=== PATIENT | male | born 1995 | race Caucasian/White ===

== ENCOUNTER 2021-07-26 18:53 | Emergency (ER) | payer BC ==
[2021-07-26] MEDS ORDERED: HYDROmorphone 1 MG/ML Syringe IVPUSH ONE (20:26)
[2021-07-26] MEDS ORDERED: Sodium Chloride 0.9% 1,000 ML IV ONE (20:26)
[2021-07-26] MEDS ORDERED: Ondansetron 4 MG/2 ML SDV IVPUSH ONE (20:26)
[2021-07-26] MEDS ORDERED: Sodium Chloride 0.9% 2.5 ML Syringe FLUSH PRN (20:26)
[2021-07-26] MEDS ORDERED: LORazepam 1 MG Tab PO ONE (20:26)
[2021-07-26] MEDS ORDERED: Sodium Chloride 0.9% 10 ML Syringe FLUSH PRN (20:26)
[2021-07-26] MEDS ORDERED: Lidocaine 2% with EPINEPHrine 1:200,000 20 ML SDV SUBCUT STA (20:28)
[2021-07-26] MEDS ORDERED: Lidocaine 1% with EPINEPHrine 1:100,000 20 ML MDV ONE (20:52)
[2021-07-26] MEDS ORDERED: PHENYLEPHRINE SCH (21:00)
[2021-07-26] MEDS ORDERED: SODIUM CHLORIDE 0.9% SCH (21:00)
--- NOTE | 2021-07-26 21:29 | EDM.PDOC ---
ED HPI GENERAL MEDICAL PROBLEM - General Chief Complaint: Genitourinary Problem Stated Complaint: ERECTION SINCE 9AM Time Seen by Provider: 07/26/21 20:22 - History of Present Illness INITIAL COMMENTS - FREE TEXT/NARRATIVE: HISTORY AND PHYSICAL: History of present illness: This a 26-year-old gentleman with no significant past medical history presents ER today secondary to a penile erection that he has had since he woke up early this morning. Patient reports that he went to the bathroom with an erection when he woke up in the erection did not detumesce. Reports that he has had it since. He reports that he took a hot shower which in the past has helped with his prolonged erections. He reports that today his erection maintained for almost 12 hours so he came to the ED for further evaluation. Patient reports that this is happened to him once or twice in the past with the last one being approximate 1 month ago. He reports that on both episodes his erection detumesced spontaneously after warm showers and a short amount of time. He reports that they have never lasted this long so came to the ER for further evaluation and management. Patient denies any recent fevers, shakes, chills, nausea, vomiting, diarrhea, dysuria, frequency, urgency, chest pain, shortness of breath, abdominal pain. Patient reports no use of any medications, no antipsychotic medications, no ED medications. Patient denies any drug use. Patient reports that last night he was drinking an excessive amount of alcohol but he was drinking with his mother and brother at home and does not believe that he would have gotten exogenous drugs accidentally given to him. Patient denies any history of sickle cell with his family. Patient reports that his grandfather of leukemia. Review of systems: As per history of present illness and below otherwise all systems reviewed and negative. Past medical history: As per history of present illness and as reviewed below otherwise noncontributory. Surgical history: As per history of present illness and as reviewed below otherwise noncontributory. Social history: No reported history of drug abuse. Family history: As per history of present illness and as reviewed below otherwise noncontributory. Physical exam: This patient was seen and evaluated during the 2019 SARS-CoV-2 novel coronavirus pandemic period. Community viral transmission is ongoing at time of this encounter and the emergency department is operating under pandemic response procedures. Constitutional: Patient is oriented to person, place, and time. Appears well- developed and well-nourished. No distress. HEENT: Moist mucous membranes Head: Normocephalic and atraumatic Eyes: Right eye exhibits no discharge. Left eye exhibits no discharge. No scleral icterus Neck: Normal range of motion. No tracheal deviation present. Cardiovascular: Normal rate and regular rhythm. Pulmonary: Effort normal, no respiratory distress. Abdominal: No distention Musculoskeletal: Normal range of motion Neurologic: Alert and oriented to person, place and time. Skin: [place], warm and dry. Psychiatric: Normal mood and affect. Behavior is normal. Judgment and thought content normal. Nursing note and vital signs have been reviewed Patient has an exam consistent with priapism. Patient's penile head is soft with erection. Diagnostics: [] Therapeutics: 2 cc of 2% lidocaine with epinephrine was injected into the base of the penis at the 10 o'clock position after area was prepped with Betadine in a sterile fashion. This was performed to assist with pain management prior to infiltration and possible irrigation. I was able to withdraw small amount of blood and 2 cc of the lidocaine with epinephrine was injected into the base of the penis. Patient tolerated procedure well. Approximately 15 minutes after injection his penis had somewhat detumesced. We are able to obtain phenylephrine solution from the pharmacy. We injected an additional 2 cc of 250 mics per cc phenylephrine solution into the base of the penis at the same location. Shortly thereafter he had near complete detumescence of his penis. A pressure dressing was applied with excellent result in detumescence of his penis. Patient tolerated procedure well. Case discussed with Dr. Gregory at [facility] urology for outpatient follow- up. Assessment and plan: 26-year-old who presents ER today with priapism of unclear etiology. Patient's labs have been sent for evaluation of renal function, WBC count, evidence of sickle cell etc. Patient will be referred to urology at [facility] for further evaluation of the cause of his priapism. Definitive disposition and diagnosis as appropriate pending reevaluation and review of above. - Related Data Allergies Allergy/AdvReac Type Severity Reaction Status Date / Time shellfish derived Allergy Hives Verified 07/26/21 20:14 Home Meds: Home Meds Pseudoephedrine [Sudogest] 60 mg PO BID 2 Days #1 bottle 07/26/21 [Rx] Past Medical History Musculoskeletal History: Reports: Fracture - Past Surgical History HEENT Surgical History: Reports: Adenoidectomy, Tonsillectomy Social & Family History - Family History Family Medical History: No Pertinent Family History - Tobacco Use Tobacco Use Status *Q: Current Every Day Tobacco User Years of Tobacco use: 13 Packs/Tins Daily: 1 - Caffeine Use Caffeine Use: Reports: Coffee, Energy Drinks - Alcohol Use Number of Drinks Per Day: 2 - Recreational Drug Use Recreational Drug Use: No ED ROS GENERAL - Review of Systems Review Of Systems: See Below ED EXAM, GENERAL - Physical Exam Exam: See Below Course - Vital Signs Last Recorded V/S: Last Vital Signs Temp 96.9 F 07/26/21 20:08 Pulse 68 07/26/21 20:08 Resp 20 07/26/21 20:08 BP 161/91 H 07/26/21 20:08 Pulse Ox 100 07/26/21 20:08 - Orders/Labs/Meds Orders: Active Orders 24 hr Category Date Time Status COMPREHENSIVE METABOLIC PN,CMP [CHEM] Stat Lab 07/26/21 21:10 Received Sodium Chloride 0.9% [Saline Flush] Med 07/26/21 20:26 Active 10 ml FLUSH ASDIRECTED PRN Sodium Chloride 0.9% [Saline Flush] Med 07/26/21 20:26 Active 2.5 ml FLUSH ASDIRECTED PRN Saline Lock Insert [OM.PC] Stat Oth 07/26/21 20:26 Ordered Medication Orders Sodium Chloride (Sodium Chloride 0.9% 10 Ml Syringe) 10 ml FLUSH ASDIRECTED PRN PRN Reason: Keep Vein Open Last Admin: 07/26/21 21:05 Dose: 10 ml Documented by: MUNIR Sodium Chloride (Sodium Chloride 0.9% 2.5 Ml Syringe) 2.5 ml FLUSH ASDIRECTED PRN PRN Reason: Keep Vein Open Last Admin: 07/26/21 21:05 Dose: 2.5 ml Documented by: MUNIR Labs: Laboratory Tests 07/26/21 07/26/21 07/26/21 Range/Units 21:10 21:10 21:10 WBC 9.69 (4.0-11.0) K/uL RBC 4.82 (4.50-5.90) M/uL Hgb 14.7 (13.0-17.0) g/dL Hct 42.7 (38.0-50.0) % MCV 88.6 (80.0-98.0) fL MCH 30.5 (27.0-32.0) pg MCHC 34.4 (31.0-37.0) g/dL RDW Std Deviation 44.3 (28.0-62.0) fl RDW Coeff of [place] 14 (11.0-15.0) % Plt Count 243 (150-400) K/uL MPV 10.40 (7.40-12.00) fL Neut % (Auto) 56.1 (48.0-80.0) % Lymph % (Auto) 29.7 (16.0-40.0) % [place] % (Auto) 8.7 (0.0-15.0) % Eos % (Auto) 5.1 (0.0-7.0) % Baso % (Auto) 0.4 (0.0-1.5) % Neut # (Auto) 5.4 (1.4-5.7) K/uL Lymph # (Auto) 2.9 H (0.6-2.4) K/uL [place] # (Auto) 0.8 (0.0-0.8) K/uL Eos # (Auto) 0.5 (0.0-0.7) K/uL Baso # (Auto) 0.0 (0.0-0.1) K/uL Nucleated RBC % 0.0 /100WBC Nucleated RBCs # 0 K/uL Urine Color YELLOW Urine Appearance CLEAR Urine pH 6.0 (5.0-8.0) Ur Specific [place] 1.010 (1.001-1.035) Urine Protein NEGATIVE (NEGATIVE) mg/dL Urine Glucose (UA) NEGATIVE (NEGATIVE) mg/dL Urine Ketones NEGATIVE (NEGATIVE) mg/dL Urine Occult Blood NEGATIVE (NEGATIVE) Urine Nitrite NEGATIVE (NEGATIVE) Urine Bilirubin NEGATIVE (NEGATIVE) Urine Urobilinogen 0.2 (<2.0) EU/dL Ur Leukocyte Esterase NEGATIVE (NEGATIVE) Urine Opiates Screen NEGATIVE (NEGATIVE) Ur Oxycodone Screen NEGATIVE (NEGATIVE) Urine Methadone Screen NEGATIVE (NEGATIVE) Ur Barbiturates Screen NEGATIVE (NEGATIVE) Ur Phencyclidine Scrn NEGATIVE (NEGATIVE) Ur Amphetamine Screen NEGATIVE (NEGATIVE) U Methamphetamines Scrn NEGATIVE (NEGATIVE) U Benzodiazepines Scrn NEGATIVE (NEGATIVE) U Cocaine Metab Screen NEGATIVE (NEGATIVE) U Marijuana (THC) Screen NEGATIVE (NEGATIVE) Meds: Medications Generic Name Dose Route Start Last Admin Trade Name Freq PRN Reason Stop Dose Admin Sodium Chloride 10 ml 07/26/21 20:26 07/26/21 21:05 Sodium Chloride 0.9% 10 Ml Syringe FLUSH 10 ml ASDIRECTED PRN Administration Keep Vein Open Sodium Chloride 2.5 ml 07/26/21 20:26 07/26/21 21:05 Sodium Chloride 0.9% 2.5 Ml Syringe FLUSH 2.5 ml ASDIRECTED PRN Administration Keep Vein Open Discontinued Medications Generic Name Dose Route Start Last Admin Trade Name Freq PRN Reason Stop Dose Admin Hydromorphone HCl 1 mg 07/26/21 20:26 07/26/21 21:04 Hydromorphone 1 Mg/Ml Syringe IVPUSH 07/26/21 20:27 1 mg ONETIME ONE Administration Sodium Chloride 1,000 mls @ 999 mls/hr 07/26/21 20:26 07/26/21 21:03 Normal Saline IV 07/26/21 21:26 999 mls/hr .Bolus ONE Administration Phenylephrine HCl 25 mg/ 100 mls @ 1 mls/hr 07/26/21 21:00 Sodium Chloride .XX TITRATE ROZ Lidocaine/Epinephrine 1 ml 07/26/21 20:28 Lidocaine 2% With Epinephrine 1:200,000 20 Ml Sdv SUBCUT 07/26/21 20:29 ONETIME STA Lidocaine/Epinephrine Confirm 07/26/21 20:52 07/26/21 21:06 Lidocaine 1% With Epinephrine 1:100,000 20 Ml Mdv Administered 07/26/21 20:53 Not Given Dose 20 ml .ROUTE .STK-MED ONE Lorazepam 1 mg 07/26/21 20:26 07/26/21 21:04 Lorazepam 1 Mg Tab PO 07/26/21 20:27 1 mg ONETIME ONE Administration Ondansetron HCl 4 mg 07/26/21 20:26 07/26/21 21:04 Ondansetron 4 Mg/2 Ml Sdv IVPUSH 07/26/21 20:27 4 mg ONETIME ONE Administration Departure - Departure Time of Disposition: 21:40 Disposition: Home, Self-Care 01 Condition: Good Clinical Impression: Priapism - Discharge Information Prescriptions: Pseudoephedrine [Sudogest] 60 mg PO BID 2 Days #1 bottle Instructions: Priapism Referrals: PCP,None [Primary Care Provider] - Forms: ED Department Discharge Additional Instructions: You were seen and evaluated in ER today secondary to priapism. You were given medications directly to your penis that has helped with detumescence of your erection. Please make an appointment to see urology to assist you with finding the cause of your episodes of priapism. We have contacted Dr. Cari Garcia at [facility]. Please give her a call at [phone] in order to make an appointment to see her. You will need to go to the pharmacy and take pseudoephedrine 60 mg twice a day for the next 2 days to help prevent recurrence of your priapism. This can be obtained [id number] however you will likely need to talk to the pharmacist to obtain it. Please return to the ED if you develop any new or concerning symptoms. The following information is given to patients seen in the emergency department who are being discharged to home. This information is to outline your options for follow-up care. We provide all patients seen in our emergency department with a follow-up referral. The need for follow-up, as well as the timing and circumstances, are variable depending upon the specifics of your emergency department visit. If you don't have a primary care physician on staff, we will provide you with a referral. We always advise you to contact your personal physician following an emergency department visit to inform them of the circumstance of the visit and for follow-up with them and/or the need for any referrals to a consulting specialist. The emergency department will also refer you to a specialist when appropriate. This referral assures that you have the opportunity for follow-up care with a specialist. All of these measure are taken in an effort to provide you with opti mal care, which includes your follow-up. Under all circumstances we always encourage you to contact your private physician who remains a resource for coordinating your care. When calling for follow-up care, please make the office aware that this follow-up is from your recent emergency room visit. If for any reason you are refused follow-up, please contact the [facility] Emergency Department at and asked to speak to the emergency department charge nurse. [facility] [address] [place] [address] [facility] [address] [place] [address] Sepsis Event Note (ED) - Evaluation Sepsis Screening Result: No Definite Risk - Focused Exam Vital Signs: Vital Signs Temp Pulse Resp BP Pulse Ox 07/26/21 20:08 96.9 F 68 20 161/91 H 100 - My Orders Last 24 Hours: My Active Orders 07/26/21 20:26 Sodium Chloride 0.9% [Saline Flush] 10 ml FLUSH ASDIRECTED PRN Sodium Chloride 0.9% [Saline Flush] 2.5 ml FLUSH ASDIRECTED PRN Saline Lock Insert [OM.PC] Stat 07/26/21 21:10 COMPREHENSIVE METABOLIC PN,CMP [CHEM] Stat - Assessment/Plan Last 24 Hours: My Active Orders 07/26/21 20:26 Sodium Chloride 0.9% [Saline Flush] 10 ml FLUSH ASDIRECTED PRN Sodium Chloride 0.9% [Saline Flush] 2.5 ml FLUSH ASDIRECTED PRN Saline Lock Insert [OM.PC] Stat 07/26/21 21:10 COMPREHENSIVE METABOLIC PN,CMP [CHEM] Stat
[2021-07-26] MEDS ORDERED: Pseudoephedrine 30 MG Tab PO ONE (21:46)
[2021-07-26 21:48] LABS: BLOOD UREA NITROGEN,BUN 11 mg/dL (7.0-18.0); CARBON DIOXIDE,CO2 27.5 mmol/L (21.0-32.0); CHLORIDE,CL 105 mmol/L (98-107); GLUCOSE RANDOM 100 mg/dL (74-106); POTASSIUM,K 3.9 mmol/L (3.5-5.1); SODIUM,NA 142 mmol/L (136-148)
[2021-07-26] MEDS ORDERED: Lidocaine 1% with EPINEPHrine 1:100,000 20 ML MDV INJECT ONE (21:55)
== END 2021-07-26 22:19 | disposition home or self-care (01) ==
LOC: MW.ED 18:53
DX: N48.30 Priapism, unspecified (principal); Z91.013 Allergy to seafood; Z72.0 Tobacco use
CPT/HCPCS: 36415; 54220; 80053; 80305; 81003; 85025; 96374; 96375; 99284; A9270; J1170; J2370; J2405; J7030

== ENCOUNTER 2024-07-27 10:32 | Emergency (ER) | payer BC, OTHER ==
[2024-07-27] MEDS: Lidocaine 2% 5 ML SDV INJECT ONE (11:24)
[2024-07-27] MEDS: PHENYLEPHRINE ONE (11:26)
[2024-07-27] MEDS: SODIUM CHLORIDE 0.9% ONE (11:26)
[2024-07-27 12:12] LABS: PCO2 ARTERIAL > 98 mmHG (35-45)
[2024-07-27 12:19] LABS: PO2 ARTERIAL < 30 mmHG (80-105)
== END 2024-07-27 13:09 | disposition home or self-care (01) ==
LOC: MW.ED 10:32
DX: N48.30 Priapism, unspecified (principal); F17.210 Nicotine dependence, cigarettes, uncomplicated; Z91.013 Allergy to seafood
CPT/HCPCS: 36600; 54220; 82803; 99284; J2371; J3490